=== PATIENT | female | born 1995 | race Caucasian/White ===

== ENCOUNTER 2017-02-02 17:40 | Emergency (ER) | payer BC ==
[2017-02-02 18:22] VITALS: BP 113/55
--- NOTE | 2017-02-02 18:29 | UC ---
Throat Pain/Nasal Zaid HPI - HPI Summary HPI Summary: 21 yo F with sinus congestion and seasonal allergies. Has tried doxycycline and xyzal with some relief, but now with nasal congestion, PND, cough, facial pressure for weeks. - History of Current Complaint Chief Complaint: UCGeneralIllness Stated Complaint: SINUSES Time Seen by Provider: 02/02/17 18:12 Hx Obtained From: Patient, Family/[employer] - mother Hx Last Menstrual Period: 01/18/17 ?: No Onset/Duration: Gradual Onset, Lasting Weeks, Still Present Severity: Moderate Pain Intensity: 6 Pain Scale Used: 0-10 Numeric Cough: Nonproductive Associated Signs & Symptoms: Positive: Sinus Discomfort, Nasal Discharge Related History: Seasonal Allergies - Allergies/Home Medications Allergies/Adverse Reactions: Allergies Allergy/AdvReac Type Severity Reaction Status Date / Time Penicillin V Allergy Intermediate Hives Verified 01/27/15 21:39 Sulfa Antibiotics Allergy Intermediate Hives Verified 01/27/15 21:39 Amoxicillin Allergy Hives Verified 02/02/17 18:02 Cefprozil [From Cefzil] Allergy Hives Verified 02/02/17 18:04 Home Medications: Home Medications Ibuprofen TAB* [Advil TAB*] 400 mg PO Q6H PRN 02/02/17 [History Confirmed ] PMH/Surg Hx/FS Hx/Imm Hx Previously Healthy: Yes - Surgical History Surgical History: None - Family History Known Family History: Positive: Other - Sjogren's in mother - Social History Occupation: Student Alcohol Use: Occasionally Substance Use Type: None Smoking Status (MU): Never Smoked Tobacco - Immunization History Most Recent Influenza Vaccination: current Review of Systems Constitutional: Negative Skin: Negative Eyes: Negative ENT: Nasal Discharge, Other - sinus tenderness Respiratory: Negative Cardiovascular: Negative Gastrointestinal: Negative Genitourinary: Negative Motor: Negative Neurovascular: Negative Musculoskeletal: Negative Neurological: Negative Psychological: Negative All Other Systems Reviewed And Are Negative: Yes Physical Exam Triage Information Reviewed: Yes Appearance: Well-Nourished, Ill-Appearing, Pain Distress Vital Signs: Initial Vital Signs Temp 97.9 F 02/02/17 17:53 Pulse 58 02/02/17 17:53 Resp 14 02/02/17 17:53 BP 113/55 02/02/17 17:53 Pulse Ox 100 02/02/17 17:53 Vital Signs Reviewed: Yes Eyes: Positive: Conjunctiva Clear ENT: Positive: Hearing grossly normal, Pharynx normal, Nasal congestion, TMs normal, Other: - sinus tenderness Neck: Positive: Supple, Nontender, No Lymphadenopathy Respiratory: Positive: Lungs clear, Normal breath sounds, No respiratory distress, No accessory muscle use Cardiovascular: Positive: RRR, No Murmur, Pulses Normal, Brisk Capillary Refill Musculoskeletal: Positive: Strength Intact, ROM Intact Neurological: Positive: Alert, Muscle Tone Normal Psychological Exam: Normal Skin Exam: Normal Throat Pain/Nasal Course/Dx - Differential Dx/Diagnosis Differential Diagnosis/HQI/PQRI: Laryngitis, Otitis Media, Pharyngitis, Sinusitis Provider Diagnoses: acute sinusitis. seasonal allergies Discharge - Discharge Plan Condition: Stable Disposition: HOME Prescriptions: Azelastine/Fluticasone ADRI(NF [Dymista(NF)] 1 spray BOTH NARES BID #1 btl Doxycycline (Monohydrate) [Mondoxyne Nl] 100 mg PO BID #20 cap LevoCETirizine TAB (NF) [Xyzal TAB (NF)] 5 mg PO DAILY #30 tab Patient Education Materials: Sinusitis (ED) Referrals: Joyce Marquis MD [Primary Care Provider] - Additional Instructions: Keep your appointment with Dr. Gutierrez. Keep taking over the counter plain mucinex. Use a netti pot again. Take the prescribed meds as directed. Return to urgent care if any new or worsening symptoms.
== END 2017-02-02 19:05 | disposition home or self-care (01) ==
LOC: UCCORT 17:40
DX: J01.90 Acute sinusitis, unspecified (principal); J30.2 Other seasonal allergic rhinitis
CPT/HCPCS: 99212; G0463